=== PATIENT | male | born 1970 | race Caucasian/White ===

== ENCOUNTER → 2016-10-17 | Outpatient (POV) | LOC: OUTPT 00:01 | PROVIDERS: ATTEND Otolaryngology | DX: H91.90 Unspecified hearing loss, unspecified ear (principal) | CPT/HCPCS: 92557; 92567 ==

== ENCOUNTER 2017-11-06 14:04 | Outpatient (CLI) | END 2017-11-06 14:05 | disposition home or self-care (01) | LOC: LAB 14:04 | PROVIDERS: ATTEND Emergency Medicine | DX: E78.5 Hyperlipidemia, unspecified (principal); E11.9 Type 2 diabetes mellitus without complications; R06.02 Shortness of breath; R35.0 Frequency of micturition | CPT/HCPCS: 36415; 80053; 80061; 81001; 83036; 84443; 85025 ==

== ENCOUNTER 2017-11-21 14:29 | Outpatient (CLI) ==
--- NOTE | 2017-11-22 07:58 | DI ---
EXAM: Cervical spine radiographs. HISTORY: Neck pain. COMPARISON: None available. TECHNIQUE: Frontal, lateral and odontoid views. FINDINGS: The normal curvature and alignment are maintained. Vertebral body heights are normal. Th ere is mild loss of disc height at C6-7. Mild-moderate endplate osteophyte formation seen from C4-5 through C6-7. Uncovertebral hypertrophy is greater in the lower cervical spine. Multilevel facet ar thropathy also is greater in the lower cervical spine. No fracture or subluxation is seen. Preverte bral soft tissues are unremarkable. The lung apices are clear. IMPRESSION: Mild to moderate mid to lower cervical degenerative changes. Correlate with MRI if further evaluatio n is needed.
== END 2017-11-21 14:30 | disposition home or self-care (01) ==
LOC: LAB 14:29
PROVIDERS: ATTEND Emergency Medicine
DX: E11.9 Type 2 diabetes mellitus without complications (principal); M54.2 Cervicalgia
CPT/HCPCS: 36415; 83525

== ENCOUNTER 2018-06-23 12:04 | Outpatient (CLI) | END 2018-06-23 12:05 | disposition home or self-care (01) | LOC: RHC-LAB 12:04 → FCC-LAB 12:05 | PROVIDERS: ATTEND Family Medicine | DX: E11.9 Type 2 diabetes mellitus without complications (principal); R42 Dizziness and giddiness; R51 Headache; G47.411 Narcolepsy with cataplexy | CPT/HCPCS: 36415; 80053; 80061; 82043; 83037; 83519; 84443; 84681; 85025; 86341 ==

== ENCOUNTER 2018-09-23 16:39 | Outpatient (CLI) | END 2018-09-23 16:40 | disposition home or self-care (01) | LOC: LAB 16:39 | PROVIDERS: ATTEND Family Medicine | DX: R55 Syncope and collapse (principal); E11.9 Type 2 diabetes mellitus without complications; E78.5 Hyperlipidemia, unspecified | CPT/HCPCS: 36415; 80053; 80061; 83036; 85025; 93005; 93010 ==

== ENCOUNTER 2018-09-30 12:52 | Outpatient (CLI) ==
--- NOTE | 2018-10-02 09:58 | HOLTER ---
PATIENT INFORMATION AND COMMENTS Attending Physician: DR. WIN VARGAS Indications: CATAPLEXY, SYNCOPE __ Patient Medications: INSULIN, BASAGLAR, ADMELOG, LISINOPRIL __ Pre-procedure Summary: Protocol: Standard Heart Rate Started: 09/30/18 1315 Minimum: 69 BPM Weight: 240 LBS Ended: 10/01/18 1258 Maximum: 166 BPM Height: 72" Duration: 23 HRS 42 MIN Average: 96 BPM _ INTERPRETATIONS/OBSERVATIONS: 1. BASIC RHYTHM: SINUS, RATE 70 BPM TO 160 BPM, AVERAGE 90 BPM 2. RARE INFREQUENT ISOLATED PAC'S AND PVC'S 3. NO ST-T WAVE CHANGES FROM BASELINE 4. NO CORRELATION WITH ACTIVITY LOG MTDD
== END 2018-09-30 12:53 | disposition home or self-care (01) ==
LOC: CAR 12:52
PROVIDERS: ATTEND Family Medicine
DX: G47.411 Narcolepsy with cataplexy (principal); R55 Syncope and collapse
CPT/HCPCS: 93227

== ENCOUNTER 2023-01-01 16:11 | Inpatient (IN) ==
--- NOTE | 2023-01-01 16:23 | ED.PDOC ---
General ED Provider: Dr. GINGER WAGNER MD Chief Complaint: Shortness of Air Stated Complaint: shortness of breath Time Seen by Provider: 01/01/23 16:21 Information Source: Patient Exam Limitations: No limitations Primary Care Provider: WIN VARGAS MD Nursing and Triage Documentation Reviewed and Agree: Yes Respiratory Complaint Exam Shortness of Air Complaint/Exam Onset/Duration: ~3 days Symptoms Are: Still present Timing: Constant Initial Severity: Mild Current Severity: Moderate Character: Reports Dyspnea at rest Aggravating: Reports None Alleviating: Reports None Associated Signs and Symptoms: Denies Cough, Wheezing, Chest pain with cough, Chest pain, Fever, Chills, Diaphoresis, Nasal congestion, Dizziness, Calf pain, Calf swelling, Edema, Rapid breathing, Labored breathing or Decreased intake Related History: Denies Similar episode History of Healthcare-Acquired Pneumonia: No Pulmonary Embolism Risk Factors: Reports None Cardiac Risk Factors: Reports None Review of Systems Review Of Systems Constitutional: Reports No symptoms Respiratory: Reports Shortness of Breath All Other Systems: Reviewed and Negative [facility] Medical History Asthma J45.909 - Unspecified asthma, uncomplicated (ICD-10) Deep vein thrombosis I82.409 - Acute embolism and thrombosis of unspecified deep veins of unspecified lower extremity (ICD-10) Diabetes mellitus E11.9 - Type 2 diabetes mellitus without complications (ICD-10) Hyperlipidemia E78.5 - Hyperlipidemia, unspecified (ICD-10) Hypertension I10 - Essential (primary) hypertension (ICD-10) 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 (ICD-10) 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 - Connective tissue and disc stenosis of intervertebral foramina of cervical region (ICD-10) Seasonal allergies J30.2 - Other seasonal allergic rhinitis (ICD-10) Sepsis A41.9 - Sepsis, unspecified organism (ICD-10) Family History (Updated 01/01/23 @ 21:37 by IGNACIA KEVIN RN) Mother Hyperlipidemia Macular degeneration Breast cancer BROTHER Type 2 diabetes mellitus Hypertension FATHER Prostate cancer Macular degeneration Hx of CABG Social History Smoking and tobacco status: Never smoker Alcohol intake: never Substance use type: does not use Lee Ann/advent: [employer] Special lee ann needs: No Agree to transfusion: Yes Adopted: No Caregiver/support person: No Foster care: No Household members: significant other and family Housing: house Lives independently: Yes Daycare: no daycare Number of children: 0 Number of grandchildren: 0 Highest education level completed: high school graduate Financial difficulty paying for basics: very hard service: No FDC: No Current occupational status: unemployed Current occupational exposures/hazards: No Pets and animals: Yes Leisure activites: other History of recent travel: No Sexually active: No Do you think of yourself as: decline to answer Current gender identity: male Seatbelt use: always Helmet use: No Drives intoxicated or rides with intoxicated bobcat driver/labor: No Water heater temperature set < 120 degrees: Yes Working smoke detector in home: No Fire extinguisher in home: No Carbon monoxide detector in home: No Firearms in home: No Surgical History History of ear, nose, and throat (ENT) surgery History of neurologic surgery S/P cervical spinal fusion Status post myringotomy with insertion of tube Physical Exam Physical Exam Appearance: Reports Ill-appearing and Obese Ill-appearing: Moderate Pain Distress: None Eyes: Reports MANDI, EOMI and Conjunctiva clear ENT: Reports Ears normal and Nose normal Neck: Nonsupple (normal age-appropriate external appearance) Respiratory: Reports Airway patent, Breath sounds clear, Breath sounds equal, Breath sounds diminished and Respirations nonlabored Cardiovascular: Reports RRR GI/: Reports Soft and Nontender Musculoskeletal: Reports Normal strength and ROM intact Skin: Reports Warm, Dry and Normal color Neurological: Reports Sensation intact, Motor intact, Cranial nerves intact, Alert and Oriented Psychiatric: Reports Affect appropriate and Mood appropriate Interpretation EKG Interpretation EKG Interpretation By: ED Physician Time of EKG #1: 16:42 Rate: Tachy (107) Rhythm: Sinus Ectopy: None [place]: Left ST Segment: Normal Interpretation: Sinus tachycardia EKG Comparison: Other (none available for comparison) Critical Care Note Critical Care Note Total Critical Care Time (mins): 45 Course Course 01/02/23 05:06 01/02/23 05:06 Orders, Labs, Meds: Lab Review 01/01/23 01/01/23 01/01/23 16:54 16:55 17:09 WBC 13.20 H RBC 5.66 Hgb 16.7 Hct 49.4 MCV 87.3 MCH 29.5 MCHC 33.8 RDW Coeff of Shireen 12.3 Plt Count 270 Immature Gran % (Auto) 0.5 Neut % (Auto) 73.9 Lymph % (Auto) 17.5 [place] % (Auto) 7.6 Eos % (Auto) 0.2 Baso % (Auto) 0.3 Neut # (Auto) 9.8 H Lymph # (Auto) 2.3 [place] # (Auto) 1.0 Eos # (Auto) 0.0 Baso # (Auto) 0.0 Immature Gran # (Auto) 0.1 Puncture Site Lbrach Base Excess -17.6 L O2 Saturation 96.9 ABG pH 7.25 L* ABG pCO2 22.0 L ABG pO2 103.0 H ABG HCO3 9.6 L ABG Total CO2 10.3 L Hemoglobin 1.8 H Oxyhemoglobin 95.4 Carboxyhemoglobin 1.4 Total Hemoglobin 16.7 FiO2 % 21.0 Sodium 133.1 L Potassium 4.52 Chloride 103.2 Carbon Dioxide 8.4 L* Anion Gap 26.02 BUN 20.4 H Creatinine 0.76 Estimated GFR (MDRD) 109.00 BUN/Creatinine Ratio 26.84 Glucose 145.0 H Hemoglobin A1c 11.22 H D Lactic Acid 0.70 Calcium 9.40 Magnesium 2.41 H Total Bilirubin 0.47 AST 24.2 ALT 28.2 Alkaline Phosphatase 68.2 Total Creatine Kinase 90.8 Troponin I < 0.012 NT-Pro-B Natriuret Pep < 20 Total Protein 8.79 H Albumin 5.04 H Globulin 3.75 Albumin/Globulin Ratio 1.34 Procalcitonin < 0.05 TSH 1.320 Urine Color Yellow Urine Clarity Clear Urine pH 5.0 Ur Specific [place] 1.025 Urine Protein Negative Urine Glucose (UA) 2+ H Urine Ketones 4+ Urine Blood Negative Urine Nitrite Negative Urine Bilirubin 1+ H Urine Urobilinogen 0.2 Ur Leukocyte Esterase Negative Ur Squamous Epith Cells Not present Triple Phos Crystals Trace Urine Bacteria Trace Granular Casts 2-5 Fine Granular Casts 5-10 Urine Opiates Screen Ur Oxycodone Screen Urine Methadone Screen Ur Propoxyphene Screen Ur Barbiturates Screen U Tricyclic Antidepress Ur Phencyclidine Scrn Ur Amphetamine Screen U Methamphetamines Scrn U Benzodiazepines Scrn Urine Cocaine Screen U Cannabinoids Screen Acetone, Qual Moderate Influ A Molecular Assay Negative by naat Influ B Molecular Assay Negative by naat SARS CoV-2 RNA Rapid MT Negative 01/01/23 17:15 WBC RBC Hgb Hct MCV MCH MCHC RDW Coeff of Shireen Plt Count Immature Gran % (Auto) Neut % (Auto) Lymph % (Auto) [place] % (Auto) Eos % (Auto) Baso % (Auto) Neut # (Auto) Lymph # (Auto) [place] # (Auto) Eos # (Auto) Baso # (Auto) Immature Gran # (Auto) Puncture Site Base Excess O2 Saturation ABG pH ABG pCO2 ABG pO2 ABG HCO3 ABG Total CO2 Hemoglobin Oxyhemoglobin Carboxyhemoglobin Total Hemoglobin FiO2 % Sodium Potassium Chloride Carbon Dioxide Anion Gap BUN Creatinine Estimated GFR (MDRD) BUN/Creatinine Ratio Glucose Hemoglobin A1c Lactic Acid Calcium Magnesium Total Bilirubin AST ALT Alkaline Phosphatase Total Creatine Kinase Troponin I NT-Pro-B Natriuret Pep Total Protein Albumin Globulin Albumin/Globulin Ratio Procalcitonin TSH Urine Color Urine Clarity Urine pH Ur Specific [place] Urine Protein Urine Glucose (UA) Urine Ketones Urine Blood Urine Nitrite Urine Bilirubin Urine Urobilinogen Ur Leukocyte Esterase Ur Squamous Epith Cells Triple Phos Crystals Urine Bacteria Granular Casts Fine Granular Casts Urine Opiates Screen Positive H Ur Oxycodone Screen Negative Urine Methadone Screen Negative Ur Propoxyphene Screen Negative Ur Barbiturates Screen Negative U Tricyclic Antidepress Negative Ur Phencyclidine Scrn Negative Ur Amphetamine Screen Negative U Methamphetamines Scrn Negative U Benzodiazepines Scrn Negative Urine Cocaine Screen Negative U Cannabinoids Screen Negative Acetone, Qual Influ A Molecular Assay Influ B Molecular Assay SARS CoV-2 RNA Rapid MT Orders Category Date Time Status ABG DRAW REQUEST Stat CARDIO 01/01/23 16:50 Completed EKG-(ED ONLY) Stat CARDIO 01/01/23 16:48 Completed Saline Lock [ED IV/MEDIPORT/POWERPORT] .ONCE EMERGENCY 01/01/23 16:48 Active ABG COOX Stat LAB 01/01/23 16:54 Completed ACETONE, QUALITATIVE Stat LAB 01/01/23 17:09 Completed BLOOD CULTURE (ED ONLY) Stat LAB 01/01/23 17:09 Received CBC W/ AUTO DIFF Stat LAB 01/01/23 17:09 Completed COMPREHENSIVE METABOLIC PANEL Stat LAB 01/01/23 17:09 Completed COVID [SARS COV-2 RNA RAPID MT] Stat LAB 01/01/23 16:55 Completed CREATINE KINASE Stat LAB 01/01/23 17:09 Completed DRUG SCREEN (RAPID FOR ED) [DRUG SCREEN, URINE, RAPID] LAB 01/01/23 17:15 Completed Stat FLU A & B MOLECULAR [FLU A/B MOLECULAR] Stat LAB 01/01/23 16:55 Completed HEMOGLOBIN A1C Stat LAB 01/01/23 17:09 Completed LACTIC ACID Stat LAB 01/01/23 17:09 Completed MAGNESIUM Stat LAB 01/01/23 17:09 Completed NT-PROBNP Stat LAB 01/01/23 17:09 Completed PROCALCITONIN Stat LAB 01/01/23 17:09 Completed RAPID STREP SCREEN [MOLECULAR GROUP A STREP] Stat LAB 01/01/23 17:09 Completed TROPONIN I Stat LAB 01/01/23 17:09 Completed TSH [THYROID STIMULATING HORMONE] Stat LAB 01/01/23 17:09 Completed UA [URINALYSIS C & S IF INDICATED] Stat LAB 01/01/23 17:09 Completed 0.9 % Sodium Chloride [Saline Flush] Meds 01/01/23 16:48 Active 1 syr IVF PRN PRN Potassium Chloride/D5-0.9%NaCl [D5%-Ns-KCl 20 Meq/l IV Meds 01/01/23 19:41 Discontinued Jaqui] 1,000 ml IV 250 mls/hr CHEST, 2 VIEWS PA & LAT Stat RADS 01/01/23 16:48 Completed Medications Generic Name Dose Route Start Last Admin Trade Name Freq PRN Reason Stop Dose Admin Acetaminophen 650 mg 01/01/23 21:15 Acetaminophen 325 Mg Tablet PO Q6H PRN FEVER/PAIN Hydrocodone Bitart/Acetaminophen 2 tab 01/01/23 21:34 01/01/23 23:36 Hydrocodone Bit/Acetaminophen 5/325 Mg Tablet PO 2 tab BEDTIME PRN Administration pain Hydrocodone Bitart/Acetaminophen 1 tab 01/01/23 23:09 Hydrocodone Bit/Acetaminophen 5/325 Mg Tablet PO Q8H PRN Pain Buspirone HCl 7.5 mg 01/01/23 23:09 Buspirone Hcl 10 Mg Tablet PO BID PRN Anxiety Dextrose/Sodium Chloride 1,000 mls @ 250 mls/hr 01/01/23 21:30 01/02/23 05:30 Dextrose 5%-Ns Iv Solution IV 250 mls/hr .Q4H EDWIN Administration Lisinopril 20 mg 01/01/23 23:30 01/01/23 23:29 Lisinopril 10 Mg Tablet PO 20 mg BEDTIME EDWIN Administration Ondansetron HCl 4 mg 01/01/23 21:15 Ondansetron Hcl/Pf 4 Mg/2 Ml Sdv IVP Q6H PRN Nausea / Vomiting Sodium Chloride 1 syr 01/01/23 16:48 0.9% Sodium Chloride 10 Ml Disp.Syrin IVF PRN PRN To flush IV Discontinued Medications Generic Name Dose Route Start Last Admin Trade Name Freq PRN Reason Stop Dose Admin Potassium Chloride/Dextrose/Sod Cl 1,000 mls @ 250 mls/hr 01/01/23 19:41 01/01/23 19:53 D5%-Ns-Kcl 20 Meq/L Iv Jaqui IV 01/01/23 23:40 250 mls/hr .Q4H STA Administration Insulin Glargine 10 unit 01/01/23 23:15 01/01/23 23:30 Insulin Glargine,Hum.Rec.Anlog 100 Units/Ml SUBCUT 01/01/23 23:16 10 unit ONCE ONE Administration Vital Signs: Temp Pulse Resp BP Pulse Ox 01/01/23 18:42 98.8 F 102 H 20 156/91 H 98 01/01/23 16:16 97.2 F L 106 H 22 H 138/88 96 Patient presents with ~3 day h/o progressively worsening SOB. He has IDDMI, and is not completely compliant with prescribed diet/medical treatment. A rather exhaustive workup was done on arrival. ABG reported significant acidosis, with pH of 7.25 and BE of 17.6. CXR reported 'No focal consolidation, large pleural effusion, or discernible pneumothorax'. The WBC was 13.2 without a definite left shift. Per protocol, he was begun on D5NS + 20mEq KCl @250mL/h. I spoke with the Hospitalist ASSEMBLY STOCK SUPERVISOR, Brandie, who accepted him for a full admission. He was in stable condition when transferred to the medical floor. Discharge Plan Discharge Patient Disposition: ADMITTED INPATIENT Discharge Problem: DKA, type 1 Qualifiers: Diabetes mellitus complication detail: without coma Qualified Code(s): E10.10 - Type 1 diabetes mellitus with ketoacidosis without coma Did you review [place] [employer] WORKER for ALL controlled substances?: Not Applicable ED Provider: GINGER WAGNER Condition: Stable Physician Progress Note: []
[2023-01-01 17:14] LABS: ABG O2 HGB 95.4 % (95-100); BEecf -17.6 (-2.0-3.0); COHb 1.4 (0.5-1.5); HCO3 9.6 (21-28); MetHb 1.8 (0-1.5); TCO2 10.3 (19-24); sO2 96.9 % (94-98); tHb 16.7 g/dl (11.7-17.4)
[2023-01-01 17:15] LABS: ABG PH 7.25 (7.35-7.45)
[2023-01-01 17:17] LABS: BASOPHILS % (AUTO) 0.3 % (0.0-3.0); EOSINOPHILS % (AUTO) 0.2 % (0.0-7.0); HEMATOCRIT 49.4 % (42.0-52.0); HEMOGLOBIN 16.7 g/dl (14.0-18.0); IMMATURE GRANULOCYTE # (AUTO) 0.1 (0.0-1.0); IMMATURE GRANULOCYTE % (AUTO) 0.5 % (0.0-5.0); LYMPHOCYTES # (AUTO) 2.3 K/uL (0.60-3.4); LYMPHOCYTES % (AUTO) 17.5 (10.0-50.0); MEAN CORPUSCULAR HEMOGLOBIN 29.5 pg (27.0-31.0); MEAN CORPUSCULAR HGB CONC 33.8 (31.8-35.4); MEAN CORPUSCULAR VOLUME 87.3 fl (80.0-94.0); MONOCYTES % (AUTO) 7.6 (0-10); NEUTROPHILS # (AUTO) 9.8 K/ul (2.0-6.9); NEUTROPHILS % (AUTO) 73.9 % (42.2-75.2); PLATELET COUNT 270 10^3/uL (140-440); RDW COEFFICIENT OF VARIATION 12.3 % (11.6-14.8); RED BLOOD COUNT 5.66 10^6/ul (4.70-6.10)
[2023-01-01 17:24] LABS: BILIRUBIN,URINE 1+ (NEGATIVE); CLARITY,URINE Clear (CLEAR); COLOR,URINE Yellow (YELLOW); GLUCOSE, URINE (UA) 2+ (NEGATIVE); KETONES,URINE 4+ (NEGATIVE); LEUKOCYTE ESTERASE ,URINE Negative (NEGATIVE); NITRITE,URINE Negative (NEGATIVE); PROTEIN,URINE Negative (NEGATIVE); URINE, BLOOD Negative (NEGATIVE); UROBILINOGEN,URINE 0.2 (0.2)
[2023-01-01 17:27] LABS: SQUAMOUS EPITHELIAL CELL,UR NOT PRESENT (0-5)
[2023-01-01 17:28] LABS: ALANINE AMINOTRANSFERASE 28.2 U/L (0-50); ALBUMIN 5.04 g/dL (3.5-5.0); ALKALINE PHOSPHATASE 68.2 U/L (38-126); ASPARTATE AMINO TRANSFERASE 24.2 U/L (17-59); BILIRUBIN,TOTAL 0.47 mg/dL (0.2-1.3); BLOOD UREA NITROGEN 20.4 mg/dL (9-20); CHLORIDE 103.2 mmol/L (98-107); CREATINE KINASE 90.8 U/L (55-170); CREATININE 0.76 mg/dL (0.60-1.10); MAGNESIUM 2.41 mg/dL (1.6-2.3); POTASSIUM 4.52 mmol/L (3.5-5.1); SODIUM 133.1 mmol/L (134.5-145); TOTAL PROTEIN 8.79 g/dL (6.3-8.2)
[2023-01-01 17:30] LABS: MOLECULAR FLU A NEGATIVE BY NAAT (NEGATIVE); MOLECULAR FLU B NEGATIVE BY NAAT (NEGATIVE); SARS COV-2 RNA RAPID NAAT NEGATIVE (NEGATIVE)
[2023-01-01 17:33] LABS: AMPHETAMINE SCREEN,URINE NEGATIVE (NEGATIVE); BARBITURATE SCREEN,URINE NEGATIVE (NEGATIVE); BENZODIAZEPINES SCREEN,URINE NEGATIVE (NEGATIVE); CANNABINOID SCREEN,URINE NEGATIVE (NEGATIVE); COCAIN SCREEN,URINE NEGATIVE (NEGATIVE); METHADONE URINE SCREEN NEGATIVE (NEGATIVE); METHAMPHETAMINES SCREEN,URINE NEGATIVE (NEGATIVE); OPIATE SCREEN,URINE POSITIVE (NEGATIVE); OXYCODONE URINE SCREEN NEGATIVE (NEGATIVE); PHENCYCLIDINE SCREEN,URINE NEGATIVE (NEGATIVE); PROPOXYPHENE URINE SCREEN NEGATIVE (NEGATIVE); TRICYCLIC ANTIDEPRESSANTS URIN NEGATIVE (NEGATIVE)
[2023-01-01 17:34] LABS: BACTERIA,URINE TRACE (NOT PRESENT); TRIPLE PHOSPHATE CRYSTAL,UR TRACE (NOT PRESENT)
[2023-01-01 17:37] LABS: CARBON DIOXIDE 8.4 mmol/L (22-30.0)
[2023-01-01 17:49] LABS: TROPONIN I < 0.012 ng/ml (0.0000-0.120)
--- NOTE | 2023-01-01 18:05 | DI ---
EXAM: PA AND LATERAL VIEWS OF THE CHEST HISTORY: Shortness of breath. COMPARISON: 12/24/2022. FINDINGS: There is no focal consolidation or large pleural effusion. The trachea is midline. The cardiomediastinal silhouette is within the normal limits. The osseous structures are degenerative. IMPRESSIONS: No focal consolidation, large pleural effusion, or discernible pneumothorax.
[2023-01-01] MEDS ORDERED: D5%-NS-KCL 20 MEQ/L IV SOL 1,000 ML IV STA (19:41)
[2023-01-01] MEDS ORDERED: ZOFRAN 4 MG/2 ML IVP PRN (21:15)
[2023-01-01] MEDS ORDERED: TYLENOL PO PRN (21:15)
[2023-01-01] MEDS ORDERED: NORCO 5-325 PO PRN ×2 (21:34→23:09)
[2023-01-01] MEDS: DEXTROSE 5%-NS IV SOLUTION 1,000 ML IV SCH (21:38)
[2023-01-01 22:08] VITALS: BMI 32.2
[2023-01-01 22:31] LABS: VBG HCO3 11.7 (22-26); VBG OXYGEN SATURATION 63.2 (60-80); VBG PH 7.23 (7.30-7.40)
[2023-01-01 22:34] LABS: BLOOD UREA NITROGEN 16.7 mg/dL (9-20); CALCIUM 8.53 mg/dL (8.4-10.2); CARBON DIOXIDE 12.3 mmol/L (22-30.0); CHLORIDE 102.4 mmol/L (98-107); CREATININE 0.75 mg/dL (0.60-1.10); GLUCOSE 173.3 mg/dL (74-106); POTASSIUM 4.67 mmol/L (3.5-5.1); SODIUM 131.6 mmol/L (134.5-145)
[2023-01-01] MEDS ORDERED: BUSPAR PO PRN (23:09)
[2023-01-01] MEDS ORDERED: LANTUS SUBCUT ONE (23:15)
[2023-01-01] MEDS ORDERED: ZESTRIL PO SCH (23:30)
[2023-01-02] MEDS: DEXTROSE 5%-NS IV SOLUTION 1,000 ML IV SCH ×4 (01:23→14:40)
[2023-01-02 05:16] LABS: BASOPHILS % (AUTO) 0.4 % (0.0-3.0); EOSINOPHILS # (AUTO) 0.1 K/ul (0.0-0.7); EOSINOPHILS % (AUTO) 1.3 % (0.0-7.0); HEMATOCRIT 43.7 % (42.0-52.0); HEMOGLOBIN 14.9 g/dl (14.0-18.0); IMMATURE GRANULOCYTE % (AUTO) 0.2 % (0.0-5.0); LYMPHOCYTES # (AUTO) 2.8 K/uL (0.60-3.4); LYMPHOCYTES % (AUTO) 33.2 (10.0-50.0); MEAN CORPUSCULAR HEMOGLOBIN 29.4 pg (27.0-31.0); MEAN CORPUSCULAR HGB CONC 34.1 (31.8-35.4); MEAN CORPUSCULAR VOLUME 86.2 fl (80.0-94.0); MONOCYTES # (AUTO) 1.1 K/uL (0.4-2.0); MONOCYTES % (AUTO) 13.6 (0-10); NEUTROPHILS # (AUTO) 4.3 K/ul (2.0-6.9); NEUTROPHILS % (AUTO) 51.3 % (42.2-75.2); PLATELET COUNT 231 10^3/uL (140-440); RDW COEFFICIENT OF VARIATION 12.5 % (11.6-14.8); RED BLOOD COUNT 5.07 10^6/ul (4.70-6.10); WHITE BLOOD COUNT 8.29 K/ul (4.2-10.2)
[2023-01-02 05:23] LABS: VBG HCO3 13.3 (22-26); VBG OXYGEN SATURATION 99.6 (60-80); VBG PH 7.39 (7.30-7.40)
[2023-01-02 05:25] LABS: ALANINE AMINOTRANSFERASE 23.2 U/L (0-50); ALBUMIN 4.09 g/dL (3.5-5.0); ALKALINE PHOSPHATASE 50.9 U/L (38-126); ASPARTATE AMINO TRANSFERASE 21.9 U/L (17-59); BILIRUBIN,TOTAL 0.43 mg/dL (0.2-1.3); CALCIUM 8.36 mg/dL (8.4-10.2); CARBON DIOXIDE 16.8 mmol/L (22-30.0); CHLORIDE 108.1 mmol/L (98-107); CREATININE 0.49 mg/dL (0.60-1.10); GLUCOSE 163.9 mg/dL (74-106); POTASSIUM 3.98 mmol/L (3.5-5.1); SODIUM 134.4 mmol/L (134.5-145); TOTAL PROTEIN 7.04 g/dL (6.3-8.2)
[2023-01-02] MEDS ORDERED: HUMALOG SUBCUT PRN (09:34)
[2023-01-02 10:08] VITALS: BP 129/76; PULSE 95; RESP 18; TEMP 98.3
--- NOTE | 2023-01-02 10:34 | PCM.SS ---
Provider Provider: [facility] WATERS [facility]-C, [facility] Date Admission Date: 01/01/23 Discharge Date Discharge Date: 01/02/23 Primary Care Physician Primary Care Physician: DORITA GONSALES Chief Complaint Reason For Visit: ketoacidosis History of Present Illness History of Present Illness: Patient is a 52-year-old male with past medical history of diabetes, hypertension, hyperlipidemia, anxiety who presented to the ER with complaints of shortness of breath and overall fatigue. In the ER he was found to have low pH, low bicarb, 4+ ketones in the urine, and a glucose of about 150. Chest x-ray was negative. Vitals overall stable. He was started on d5 normal saline. He was admitted for DKA. After speaking with the patient on the floor he revealed that he was trying to lower his A1c to be cleared for a cervical surgical procedure. He has loosely followed a keto diet chronically but has been noncompliant lately. His last A1c was over 12. About a week ago he decided to go on a strict keto diet with less than 20 g of carbs per day. He actually had to lower his long-acting insulin requirement from 35 units to 20 units since his sugars were in the 90s to 100s. Over the last few days he started to feel very ill and noticed that his breathing had become labored. Patient's sugars were less than 200 consistently while in the ER and on the floor. It was thought that he is likely in a starvation ketoacidosis, not a diabetic ketoacidosis. Due to this he was allowed to eat and then fluids were continued overnight with D5 normal saline. Glucose remained stable. His bicarb trended up ultimately to 18. His pH normalized. He felt better and was able to tolerate a diet without difficulty. Discussed that it is great that he is attempting to manage his sugars better. Advised instead of being in such a strict keto diet with less than 20 g of carbs per day, it would be better for him to maybe try a looser/not as strict version and monitor his glucose. As long as he is continuing to diet it is okay for him to remain at 20 units at night. Advised him to keep a log and if his sugars start to trend upwards to contact his PCP for further advice. Advised him to continue to push fluids over the next few days. Patient agrees to plan of care. Of note, he states his gums bleed a lot and feel irritated when brushing. He has been trying to get into a dentist. 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 - Connective tissue and disc stenosis of intervertebral foramina of cervical region (ICD-10) Seasonal allergies J30.2 - Other seasonal allergic rhinitis (ICD-10) Sepsis A41.9 - Sepsis, unspecified organism (ICD-10) Surgical History History of ear, nose, and throat (ENT) surgery Z98.890 - Other specified postprocedural states (ICD-10) History of neurologic surgery Z98.890 - Other specified postprocedural states (ICD-10) S/P cervical spinal fusion Z98.1 - Arthrodesis status (ICD-10) Status post myringotomy with insertion of tube Z96.22 - Myringotomy tube(s) status (ICD-10) Family History Mother Hyperlipidemia Macular degeneration Breast cancer BROTHER Type 2 diabetes mellitus Hypertension FATHER Prostate cancer Macular degeneration Hx of CABG Social History Smoking and tobacco status: Never smoker Alcohol intake: never Substance use type: does not use Lee Ann/jew: [employer]OR[employer] Special lee ann needs: No Agree to transfusion: Yes Adopted: No Caregiver/support person: No Foster care: No Household members: significant other and family Housing: house Lives independently: Yes Daycare: no daycare Number of children: 0 Number of grandchildren: 0 Highest education level completed: high school graduate Financial difficulty paying for basics: very hard service: No longterm: No Current occupational status: unemployed Current occupational exposures/hazards: No Pets and animals: Yes Leisure activites: other History of recent travel: No Sexually active: No Do you think of yourself as: decline to answer Current gender identity: male Seatbelt use: always Helmet use: No Drives intoxicated or rides with intoxicated funeral driver: No Water heater temperature set < 120 degrees: Yes Working smoke detector in home: No Fire extinguisher in home: No Carbon monoxide detector in home: No Firearms in home: No Medications Mecications: Medications at Discharge (Home Meds & RX) insulin syringe-needle U-100 1/2 mL 28 gauge #90 ea 12/19/18 blood sugar diagnostic (OneTouch Ultra Blue Test Strip) #100 ea 09/09/19 pen needle, diabetic 32 gauge x 5/32" (BD Ultra-Fine Zuleyma Pen Needle) #200 ea 12/23/19 buspirone 15 mg tablet 7.5 mg PO BID PRN anxiety 01/01/23 empagliflozin 25 mg tablet (Jardiance) 25 mg PO DAILY 01/01/23 hydrocodone 5 mg-acetaminophen 325 mg tablet 1 tab PO Q8H PRN pain 01/01/23 insulin glargine 100 unit/mL subcutaneous solution (Lantus U-100 Insulin) 20 unit subcut BEDTIME 01/01/23 insulin syringe-needle U-100 0.3 mL 31 gauge x 5/16" (TRUEplus Insulin) 0 01/01/23 lisinopril 20 mg tablet 20 mg PO BEDTIME 01/01/23 terbinafine HCl 250 mg tablet 250 mg PO BEDTIME 01/01/23 Allergies Allergies Allergy/AdvReac Type Severity Reaction Status Date / Time modafinil [From Provigil] AdvReac swollen Verified 01/01/23 19:11 tounge Review of Systems Constitutional: Reports Fatigue and Weakness; Denies Fever Head: Reports Normocephalic and Atraumatic Eyes: Denies Vision Changes Throat: Denies Sore Throat or Difficulty Swallowing Cardiovascular: Denies Chest pain, Chest Pressure or Edema Respiratory: Reports Shortness of air; Denies Cough Gastrointestinal: Reports Nausea and Abdominal pain; Denies Vomiting or Diarrhea Genitourinary: Denies Dysuria or Hematuria Neurological: Reports Weakness; Denies Syncope Physical Examination Appearance: Positive Well-appearing, Well-nourished and No Apparent Distress Head: Positive Normocephalic and Atraumatic Eyes: Positive MANDI ENT: Positive Other (+mild erythema of gums consistent with mild gingivitis. No abscess or drainage noted. ) Neck: Positive Supple and Trachea Midline Heart: Positive RRR Respiratory: Positive Breath Sounds Clear, Bilaterally and Respirations Nonlabored; Negative Crackles, Rhonchi, Wheezes or Retractions GI/: Positive Soft, Nontender, Bowel sounds normal and No Distention Extremities: Negative Edema Neurological: Positive Cranial nerves intact, Alert and Oriented Psychiatric: Positive Normal Judgement, Normal Insight, Affect Appropriate and Mood Appropriate Vital Signs (Last 4 Hours) Vital Signs Last 4 Hours: Vital Signs: Last 4 Hours 01/02/23 07:00 01/02/23 08:00 01/02/23 09:08 Temperature Temperature Source Pulse Rate Respiratory Rate Blood Pressure Blood Pressure Mean Blood Pressure Location Blood Pressure Position O2 Sat by Pulse Oximetry Oxygen Delivery Method Room Air Height 5 ft 11 in Weight 231 lb 2 oz Telemetry Type Remote Telemetry Telemetry Monitoring Continues Telemetry Heart Rate [address] Interval 0.14 EKG QRS Interval 0.08 Telemetry Strip Reading NSR 01/02/23 10:00 Temperature 98.3 F Temperature Source Oral Pulse Rate 95 Respiratory Rate 18 Blood Pressure 129/76 Blood Pressure Mean 93 Blood Pressure Location Left Arm Blood Pressure Position Supine O2 Sat by Pulse Oximetry 97 Oxygen Delivery Method Room Air Height Weight Telemetry Type Telemetry Monitoring Telemetry Heart Rate EKG CT Interval EKG QRS Interval Telemetry Strip Reading Labs This Visit Labs This Visit: Labs This Visit 01/01/23 01/01/23 01/01/23 16:54 16:55 17:09 WBC 13.20 H RBC 5.66 Hgb 16.7 Hct 49.4 MCV 87.3 MCH 29.5 MCHC 33.8 RDW Coeff of Shireen 12.3 Plt Count 270 Immature Gran % (Auto) 0.5 Neut % (Auto) 73.9 Lymph % (Auto) 17.5 Glascock % (Auto) 7.6 Eos % (Auto) 0.2 Baso % (Auto) 0.3 Neut # (Auto) 9.8 H Lymph # (Auto) 2.3 Glascock # (Auto) 1.0 Eos # (Auto) 0.0 Baso # (Auto) 0.0 Immature Gran # (Auto) 0.1 Puncture Site Lbrach Base Excess -17.6 L O2 Saturation 96.9 ABG pH 7.25 L* ABG pCO2 22.0 L ABG pO2 103.0 H ABG HCO3 9.6 L ABG Total CO2 10.3 L VBG pH VBG pCO2 VBG pO2 VBG HCO3 VBG O2 Saturation Hemoglobin 1.8 H Oxyhemoglobin 95.4 Carboxyhemoglobin 1.4 Total Hemoglobin 16.7 FiO2 % 21.0 Sodium 133.1 L Potassium 4.52 Chloride 103.2 Carbon Dioxide 8.4 L* Anion Gap 26.02 BUN 20.4 H Creatinine 0.76 Estimated GFR (MDRD) 109.00 BUN/Creatinine Ratio 26.84 Glucose 145.0 H Hemoglobin A1c 11.22 H D Lactic Acid 0.70 Calcium 9.40 Magnesium 2.41 H Total Bilirubin 0.47 AST 24.2 ALT 28.2 Alkaline Phosphatase 68.2 Total Creatine Kinase 90.8 Troponin I < 0.012 NT-Pro-B Natriuret Pep < 20 Total Protein 8.79 H Albumin 5.04 H Globulin 3.75 Albumin/Globulin Ratio 1.34 Procalcitonin < 0.05 TSH 1.320 Urine Color Yellow Urine Clarity Clear Urine pH 5.0 Ur Specific Preston 1.025 Urine Protein Negative Urine Glucose (UA) 2+ H Urine Ketones 4+ Urine Blood Negative Urine Nitrite Negative Urine Bilirubin 1+ H Urine Urobilinogen 0.2 Ur Leukocyte Esterase Negative Ur Squamous Epith Cells Not present Triple Phos Crystals Trace Urine Bacteria Trace Granular Casts 2-5 Fine Granular Casts 5-10 Urine Opiates Screen Ur Oxycodone Screen Urine Methadone Screen Ur Propoxyphene Screen Ur Barbiturates Screen U Tricyclic Antidepress Ur Phencyclidine Scrn Ur Amphetamine Screen U Methamphetamines Scrn U Benzodiazepines Scrn Urine Cocaine Screen U Cannabinoids Screen Acetone, Qual Moderate Influ A Molecular Assay Negative by naat Influ B Molecular Assay Negative by naat SARS CoV-2 RNA Rapid MT Negative 01/01/23 01/01/23 01/01/23 17:15 22:15 22:25 WBC RBC Hgb Hct MCV MCH MCHC RDW Coeff of Shireen Plt Count Immature Gran % (Auto) Neut % (Auto) Lymph % (Auto) Glascock % (Auto) Eos % (Auto) Baso % (Auto) Neut # (Auto) Lymph # (Auto) Glascock # (Auto) Eos # (Auto) Baso # (Auto) Immature Gran # (Auto) Puncture Site Base Excess O2 Saturation ABG pH ABG pCO2 ABG pO2 ABG HCO3 ABG Total CO2 VBG pH 7.23 L VBG pCO2 28 L VBG pO2 40 VBG HCO3 11.7 L VBG O2 Saturation 63.2 Hemoglobin Oxyhemoglobin Carboxyhemoglobin Total Hemoglobin FiO2 % Sodium 131.6 L Potassium 4.67 Chloride 102.4 Carbon Dioxide 12.3 L Anion Gap 21.57 BUN 16.7 Creatinine 0.75 Estimated GFR (MDRD) 110.00 BUN/Creatinine Ratio 22.26 Glucose 173.3 H Hemoglobin A1c Lactic Acid Calcium 8.53 Magnesium Total Bilirubin AST ALT Alkaline Phosphatase Total Creatine Kinase Troponin I NT-Pro-B Natriuret Pep Total Protein Albumin Globulin Albumin/Globulin Ratio Procalcitonin TSH Urine Color Urine Clarity Urine pH Ur Specific Preston Urine Protein Urine Glucose (UA) Urine Ketones Urine Blood Urine Nitrite Urine Bilirubin Urine Urobilinogen Ur Leukocyte Esterase Ur Squamous Epith Cells Triple Phos Crystals Urine Bacteria Granular Casts Fine Granular Casts Urine Opiates Screen Positive H Ur Oxycodone Screen Negative Urine Methadone Screen Negative Ur Propoxyphene Screen Negative Ur Barbiturates Screen Negative U Tricyclic Antidepress Negative Ur Phencyclidine Scrn Negative Ur Amphetamine Screen Negative U Methamphetamines Scrn Negative U Benzodiazepines Scrn Negative Urine Cocaine Screen Negative U Cannabinoids Screen Negative Acetone, Qual Influ A Molecular Assay Influ B Molecular Assay SARS CoV-2 RNA Rapid MT 01/02/23 01/02/23 05:06 05:15 WBC 8.29 RBC 5.07 Hgb 14.9 Hct 43.7 MCV 86.2 MCH 29.4 MCHC 34.1 RDW Coeff of Shireen 12.5 Plt Count 231 Immature Gran % (Auto) 0.2 Neut % (Auto) 51.3 Lymph % (Auto) 33.2 Glascock % (Auto) 13.6 H Eos % (Auto) 1.3 Baso % (Auto) 0.4 Neut # (Auto) 4.3 Lymph # (Auto) 2.8 Gl[place]ock # (Auto) 1.1 Eos # (Auto) 0.1 Baso # (Auto) 0.0 Immature Gran # (Auto) 0.0 Puncture Site Base Excess O2 Saturation ABG pH ABG pCO2 ABG pO2 ABG HCO3 ABG Total CO2 VBG pH 7.39 VBG pCO2 22 L VBG pO2 185 H VBG HCO3 13.3 L VBG O2 Saturation 99.6 H Hemoglobin Oxyhemoglobin Carboxyhemoglobin Total Hemoglobin FiO2 % Sodium 134.4 L Potassium 3.98 Chloride 108.1 H Carbon Dioxide 16.8 L Anion Gap 13.48 BUN 13.0 Creatinine 0.49 L Estimated GFR (MDRD) 180.00 BUN/Creatinine Ratio 26.53 Glucose 163.9 H Hemoglobin A1c Lactic Acid Calcium 8.36 L Magnesium Total Bilirubin 0.43 AST 21.9 ALT 23.2 Alkaline Phosphatase 50.9 Total Creatine Kinase Troponin I NT-Pro-B Natriuret Pep Total Protein 7.04 Albumin 4.09 Globulin 2.95 Albumin/Globulin Ratio 1.38 Procalcitonin TSH Urine Color Urine Clarity Urine pH Ur Specific Preston Urine Protein Urine Glucose (UA) Urine Ketones Urine Blood Urine Nitrite Urine Bilirubin Urine Urobilinogen Ur Leukocyte Esterase Ur Squamous Epith Cells Triple Phos Crystals Urine Bacteria Granular Casts Fine Granular Casts Urine Opiates Screen Ur Oxycodone Screen Urine Methadone Screen Ur Propoxyphene Screen Ur Barbiturates Screen U Tricyclic Antidepress Ur Phencyclidine Scrn Ur Amphetamine Screen U Methamphetamines Scrn U Benzodiazepines Scrn Urine Cocaine Screen U Cannabinoids Screen Acetone, Qual Influ A Molecular Assay Influ B Molecular Assay SARS CoV-2 RNA Rapid MT Microbiology This Visit 01/01/23 17:09 Throat Group A Strep Molecular Assay - Final Imaging Imaging: EXAM: PA AND LATERAL VIEWS OF THE CHEST HISTORY: Shortness of breath. COMPARISON: 12/24/2022. FINDINGS: There is no focal consolidation or large pleural effusion. The trachea is midline. The cardiomediastinal silhouette is within the normal limits. The osseous structures are degenerative. IMPRESSIONS: No focal consolidation, large pleural effusion, or discernible pneumothorax. Review Review Statement: I have independently reviewed and interpreted the labs/EKGs/imaging that were ordered by the ER provider. I have reviewed all outside records that are available currently in our EMR including imaging/notes/labs from previous visits. Plan Additional Plannin. Acute starvation ketoacidosis in setting of strict keto diet in a diabetic - Resolving. D5NS at 250 ml/hr, hourly accuchecks, lantus 10 U x1 given. Regular diet. Pt states he has been told he's DMT1 and DMT2, looking back at records his previous pcp worked him up for possible DMT1 but labwork pointed towards T2. 2. Acute metabolic acidosis in setting of acute starvation ketoacidosis - Resolving. Plan as above. 3. DM, uncontrolled - Continue to improve outpatient with less strict keto diet. 4. Hypertension - Continue home meds 5. Anxiety - Continue buspirone. 6. Mild gingivitis - chlorhexidine mouth wash Case discussed with ED Physician, Dr. Christie. DVT Prophylaxis: Ambulation Advanced Care Plannin minutes spent discussing advance care planning. FULL CODE Admit to: Inpatient Discussed Plan of Care with Dr. Mann Marinelli. Discharge plan: Fluids were continued overnight with D5 normal saline. He was given lantus 10 units. Glucose remained stable. His bicarb trended up ultimately to 18. His pH normalized. He felt better and was able to tolerate a diet without difficulty. Discussed that it is great that he is attempting to manage his sugars better. Advised instead of being in such a strict keto diet with less than 20 g of carbs per day, it would be better for him to maybe try a looser/not as strict version and monitor his glucose. As long as he is continuing to diet it is okay for him to remain at 20 units at night. Advised him to keep a log and if his sugars start to trend upwards to contact his PCP for further advice. Advised him to continue to push fluids over the next few days. Patient agrees to plan of care. Patient improved quicker than expected. Discharge diagnosis: 1. Acute starvation ketoacidosis in setting of strict keto diet in a diabetic, resolved 2. Acute metabolic acidosis in setting of acute starvation ketoacidosis, resolved 3. DM, uncontrolled 4. Hypertension 5. Anxiety 6. Mild gingivitis Review With Patient Reviewed with Patient and Family: Patient and family have been counseled on condition and care plan and have no immediate questions. I have personally discussed and reviewed the patient's visit/current labs/imaging/decision making with Dr. Mann Marinelli, my supervising attending. Total number of minutes spent with patient [ 85 ] min. More than 50% of the time spent with this patient was devoted to counseling and coordination of care. Time of Admission:01/01/23 20:40 Time of Discharge: 01/02/23 [id number] Discharge Plan Discharge Discharge Orders: Discharge Patient (ONCE); Ordered 01/02/23 Ordered By: HELENE WATERS Activity Restrictions/Additional Instructions: DISCHARGE TO HOME DX: KETOACIDOSIS ACTIVITY: TOLERATED DIET: PUSH FLUIDS, MAY BE LOW CARB BUT NOT STRICT YOU HAVE A HOSPITAL FOLLOW UP WITH DR. GONSALES ON AT 2:45PM. SHOULD YOU HAVE ANY QUESTIONS OR NEED TO RESCHEDULE YOU CAN CONTACT THEIR OFFICE AT [phone]. [facility] Care Plan Goals: Problem: Alteration in Comfort/Pain Goal: Manage pain at a tolerable level Instructions: Monitor character, location and intensity Express expectations of pain relief Pain medication as ordered Position for maximal comfort Pain management prior to activities Problem: Impaired Respiratory Status Goal: Exhibit optimal respiratory function Instructions: Activities as tolerated Apply oxygen as ordered Elevate head of bed Notify MD of increased congestion Patient Disposition: HOME SELF-CARE Prescriptions: New chlorhexidine gluconate 0.12 % mouthwash 15 ml buccal BID Qty: 118 0RF Rx Instructions: SWISH FOR 30 SECONDS WITH 15 ML AFTER BRUSHING, THEN SPIT. REPEAT TWICE DAILY UNTIL SYMPTOMS RESOLVE. Continued insulin glargine [Lantus U-100 Insulin] 100 unit/mL solution 20 unit SUBCUT BEDTIME hydrocodone-acetaminophen 5-325 mg tablet 1 tab PO Q8H PRN (Reason: pain) terbinafine HCl 250 mg tablet 250 mg PO BEDTIME buspirone 15 mg tablet 7.5 mg PO BID PRN (Reason: anxiety) Jardiance 25 mg tablet 25 mg PO DAILY lisinopril 20 mg tablet 20 mg PO BEDTIME No Action (DME) insulin syringe-needle U-100 1 EACH syringe 1 ea MC TID WM 30 Days Qty: 90 0RF (DME) OneTouch Ultra Blue Test Strip Strip See Rx Instructions .ROUTE .MEDSUPPLY Qty: 100 12RF Rx Instructions: four times daily fasting and with meals (DME) pen needle, diabetic [BD Ultra-Fine Zuleyma Pen Needle] 32 gauge x 5/32" needle See Rx Instructions .ROUTE .MEDSUPPLY Qty: 200 12RF Rx Instructions: As directed QACHS, IDDM (DME) insulin syringe-needle U-100 [TRUEplus Insulin] 0.3 mL 31 gauge x 5/16" syringe MISCELLANEOUS Did you review [place] [employer]ING MACHINE [employer]ENDER for ALL controlled substances?: Not Applicable Discussed opioids are addictive and Narcan is available by prescription or from pharmacy.: No Condition: Stable
[2023-01-02 12:17] LABS: BLOOD UREA NITROGEN 10.8 mg/dL (9-20); CALCIUM 8.36 mg/dL (8.4-10.2); CARBON DIOXIDE 18.2 mmol/L (22-30.0); CHLORIDE 107.2 mmol/L (98-107); CREATININE 0.49 mg/dL (0.60-1.10); GLUCOSE 200.6 mg/dL (74-106); POTASSIUM 3.97 mmol/L (3.5-5.1); SODIUM 135.1 mmol/L (134.5-145)
== END 2023-01-02 14:30 | disposition home or self-care (01) | DRG 640 ==
LOC: ED 16:11 → MEDSURG B 20:40
PROVIDERS: ADMIT Hospitalist; ATTEND Physician Assistant
DX: Z79.899 Other long term (current) drug therapy; Z86.711 Personal history of pulmonary embolism; G47.411 Narcolepsy with cataplexy; Z79.1 Long term (current) use of non-steroidal anti-inflammatories (NSAID); R06.02 Shortness of breath; R63.8 Other symptoms and signs concerning food and fluid intake; Z91.199 Patient's noncompliance with other medical treatment and regimen due to unspecified reason; I10 Essential (primary) hypertension; E10.65 Type 1 diabetes mellitus with hyperglycemia; Z79.4 Long term (current) use of insulin; E66.9 Obesity, unspecified; F41.9 Anxiety disorder, unspecified; Z51.81 Encounter for therapeutic drug level monitoring; K05.00 Acute gingivitis, plaque induced; Z68.32 Body mass index [BMI] 32.0-32.9, adult; Z20.822 Contact with and (suspected) exposure to COVID-19; Z91.119 Patient's noncompliance with dietary regimen due to unspecified reason; Z98.890 Other specified postprocedural states; M99.71 Connective tissue and disc stenosis of intervertebral foramina of cervical region; J30.2 Other seasonal allergic rhinitis; E78.5 Hyperlipidemia, unspecified; E10.10 Type 1 diabetes mellitus with ketoacidosis without coma